=== PATIENT | male | born 1955 | race Caucasian/White ===

== ENCOUNTER 2017-01-25 09:33 | Observation (INO) | payer BC ==
[2017-01-25] MEDS ORDERED: Sodium Chloride 0.9% 1,000 ML IV ONE (10:05)
--- NOTE | 2017-01-25 10:38 | EDM.PDOC ---
ED HPI SEIZURE COMPLAINT - General Chief Complaint: Syncope Stated Complaint: syncope Time Seen by Provider: 01/25/17 10:13 Source of Information: Reports: Patient History Limitations: Reports: No limitations - History of Present Illness INITIAL COMMENTS - FREE TEXT/NARRATIVE: Patient seen for a syncopal episode while waiting for medications at the pharmacy. He states that he did have some lightheadedness and dizziness on more than one occasion this week. Has been ill for a week with fever and chills. Afebrile this morning. He denies chest pain, SOB, no LOC, no nausea, vomiting, bloody urine, stool, or emesis. He is clammy. Denies smoking, but does use chewing tobacco. States he drinks 2-3 beers 2-3 times weekly. Denies drug use. Has history of HTN and takes a combination pill of lisinopril and hctz 10/12.5. He denies all other medical history. Does have a history of multiple fractured ribs due to getting hit by a tree that he was cutting down. Symptom Onset Date: 01/25/17 Symptom Onset Time: 09:30 Event Occurred (Where): other Event (Witnessed/Unwitnessed): witnessed Context: Reports: illness Pre Event Symptom(s): Reports: diaphoresis, fever/chills, shortness of breath Event Symptoms: Reports: no other symptoms - Related Data Allergies/ADRs: Allergies Allergy/AdvReac Type Severity Reaction Status Date / Time venom-honey bee Allergy Swelling Verified 01/25/17 10:03 [bee venom (honey bee)] Home Meds: Home Meds Lisinopril/Hydrochlorothiazide [Lisinopril-Hctz 10-12.5 mg Tab] 1 tab DAILY 12/09 [History] Past Medical History - Past Health History Medical/Surgical History: Denies Medical/Surgical History Social & Family History - Alcohol Use Days Per Week of Alcohol Use: 4 Number of Drinks Per Day: 5 Total Drinks Per Week: 20 - Recreational Drug Use Recreational Drug Use: No ED ROS GENERAL - Review of Systems Review Of Systems: See Below Constitutional: Reports: fever, chills, diaphoresis HEENT: Reports: No symptoms Respiratory: Reports: Shortness of Breath Cardiovascular: Reports: No symptoms. Denies: Chest pain Endocrine: Reports: no symptoms GI/Abdominal: Reports: No symptoms : Reports: no symptoms Musculoskeletal: Reports: no symptoms Skin: Reports: no symptoms Neurological: Reports: No Symptoms Psychiatric: Reports: No symptoms Hematologic/Lymphatic: Reports: no symptoms Immunologic: Reports: no symptoms - Physical Exam Exam: See Below Exam Limited By: No limitations General Appearance: alert, WD/WN, no apparent distress Eye Exam: bilateral eye: EOMI, PERRL Ears: normal TMs Nose: normal inspection Throat/Mouth: Normal inspection, Normal oropharynx Head Exam: atraumatic, normocephalic Neck: normal inspection, supple, non-tender, full range of motion Respiratory/Chest: no respiratory distress, lungs clear, normal breath sounds, chest non-tender Cardiovascular: normal peripheral pulses, regular rate, rhythm, no edema GI/Abdominal: normal bowel sounds, soft, non tender Neuro Exam (Abbreviated): alert, oriented, CN II-XII intact, normal cognition Back Exam: normal inspection Extremities: normal inspection, normal range of motion, no pedal edema, normal capillary refill Psychiatric: normal affect, normal mood Skin Exam: Diaphoretic EKG INTERPRETATION EKG Date: 01/25/17 Time: 09:35 Rhythm: other (sinus tach) Rate (beats/min): 108 [place]: LAD-left axis deviation P-wave: present QRS: normal ST-T: normal QT: normal Comparison: change from previous EKG EKG Interpretation Comments: Sinus tachycardia left axis deviation poor R wave progression - likely normal variant low QRS voltages in precordial leads 15 LEAD ECG Course - Orders/Labs/Meds Orders: Active Orders 24 hr Category Date Time Status Chest 1V Frontal [CR] Stat Exams 01/25/17 10:13 Ordered B-TYPE NATRIURETIC PEPTIDE,BNP [CHEM] Stat Lab 01/25/17 10:21 Ordered CK W CKMB [CHEM] Stat Lab 01/25/17 10:21 Ordered D-DIMER QUANTITATIVE [COAG] Stat Lab 01/25/17 10:21 Ordered TROPONIN I [CHEM] Stat Lab 01/25/17 10:21 Ordered - Re-Assessments/Exams Free Text/Narrative Re-Assessment/Exam: 01/25/17 11:27 Troponin did come back slightly elevated at 0.156 so I will admit for observation to trend his troponin. If negative trend, will discharge to home, if continues to climb, will transfer to [facility] for further evaluation. 01/25/17 11:41 PLEASE USE EMERGENCY ROOM HISTORY AND PHYSICAL ADMITTING H AND P Departure - Departure Time of Disposition: 11:41 Disposition: Refer to Observation Condition: good Clinical Impression: Syncope Forms: ED Department Discharge - My Orders Last 24 Hours: My Active Orders 01/25/17 10:13 Chest 1V Frontal [CR] Stat 01/25/17 10:21 B-TYPE NATRIURETIC PEPTIDE,BNP [CHEM] Stat CK W CKMB [CHEM] Stat D-DIMER QUANTITATIVE [COAG] Stat TROPONIN I [CHEM] Stat - Assessment/Plan Last 24 Hours: My Active Orders 01/25/17 10:13 Chest 1V Frontal [CR] Stat 01/25/17 10:21 B-TYPE NATRIURETIC PEPTIDE,BNP [CHEM] Stat CK W CKMB [CHEM] Stat D-DIMER QUANTITATIVE [COAG] Stat TROPONIN I [CHEM] Stat
[2017-01-25] MEDS ORDERED: Sodium Chloride 0.9% 10 ML Syringe FLUSH PRN (11:03)
[2017-01-25 11:30] LABS: CHLORIDE,CL 103 mmol/L (98-107); SODIUM,NA 138 mmol/L (136-145)
[2017-01-25] MEDS ORDERED: Acetaminophen 325 MG Tab PO PRN (11:43)
[2017-01-25] MEDS ORDERED: Ibuprofen 200 MG Tab PO PRN (11:43)
[2017-01-25] MEDS ORDERED: Albuterol/Ipratropium 3.0-0.5 MG/3 ML Neb Soln NEB PRN (11:43)
[2017-01-25] MEDS ORDERED: Docusate Sodium 100 MG Cap PO PRN (11:43)
[2017-01-25] MEDS ORDERED: Acetaminophen/HYDROcodone 325-5 MG Tab PO PRN (11:43)
[2017-01-25] MEDS ORDERED: Ondansetron 4 MG Tab.DIS PO PRN (11:43)
[2017-01-25] MEDS ORDERED: Enoxaparin 40 MG/0.4 ML Syringe SUBCUT SCH (11:45)
[2017-01-25] MEDS ORDERED: Sodium Chloride 0.9% 1,000 ML IV SCH (12:00)
[2017-01-25] MEDS ORDERED: Heparin Sodium 5,000 Units/ML Vial IVPUSH ONE (12:44)
[2017-01-25] MEDS ORDERED: Heparin Sodium/0.45% NaCl 25,000 UNITS/500 ML BAG IV SCH (12:45)
[2017-01-25 14:14] VITALS: BP 100/84
--- NOTE | 2017-02-08 08:51 | PCM.DCSUM1 ---
Discharge Summary - Hospital Course Free Text/Narrative:: Patient brought in for syncopal episode with reports of feeling ill over the past week with similar near syncopal episodes. Admitted for observation due to slightly elevated troponin Brief History: Admission for observation due to syncope and slight elevation of troponin and D-dimer. Results of CTA chest did show a sizeable saddle pulmonary embolus with possible atrial septal defect. He was immediately given TPA after consultation with human performance professor at [facility], as well as risks and benefits being explained. [facility] transfer to [facility] ICU. - Discharge Data Discharge Date: 01/25/17 Discharge Disposition: DC/Tfer to Other 70 Condition: Serious - Discharge Diagnosis/Problem(s) (1) Bilateral pulmonary embolism SNOMED Code(s): 42179377, [id number] ICD Code: I26.99 - OTHER PULMONARY EMBOLISM WITHOUT ACUTE COR PULMONALE Status: Acute Priority: High - Patient Summary/Data Hospital Course: Admission for observation due to syncope and slight elevation of troponin and D- dimer. Results of CTA chest did show a sizeable saddle pulmonary embolus with possible atrial septal defect. He was immediately given TPA after consultation with human performance professor at [facility], as well as risks and benefits being explained. [facility] transfer to [facility] ICU. - Discharge Plan Home Medications: Home Meds Lisinopril/Hydrochlorothiazide [Lisinopril-Hctz 10-12.5 mg Tab] 1 tab DAILY 12/09 [History] Forms: ED Department Discharge, Interfacility Transfer [facility] Referrals: Adelita Espinal DO [Primary Care Provider] - - Discharge Summary/Plan Comment DC Time >30 min.: Yes - Patient Data Vitals - Most Recent: Last Vital Signs Temp 36.4 C 01/25/17 14:01 Pulse 91 01/25/17 14:14 Resp 16 01/25/17 14:14 BP 100/84 01/25/17 14:14 Pulse Ox 91 L 01/25/17 14:14 Weight - Most Recent: 98.792 kg Med Orders - Current: Current Medications Discontinued Medications Acetaminophen (Tylenol) 650 mg PO Q4H PRN PRN Reason: Pain (Mild 1-3)/fever Hydrocodone Bitart/Acetaminophen ([place] 325-5 Mg) 1 tab PO Q4H PRN PRN Reason: Pain (moderate 4-6) Albuterol/Ipratropium (Duoneb 3.0-0.5 Mg/3 Ml) 3 ml NEB Q4H PRN PRN Reason: dyspnea/wheezing Alteplase, Recombinant (Activase) 100 mg IV ONETIME ONE Stop: 01/25/17 13:24 Last Admin: 01/25/17 13:48 Dose: 100 mg Docusate Sodium (Colace) 100 mg PO BID PRN PRN Reason: Constipation Enoxaparin Sodium (Lovenox) 40 mg SUBCUT DAILY LEROY Last Admin: 01/25/17 13:03 Dose: Not Given Heparin Sodium (Porcine) (Heparin Sodium) 5,000 units IVPUSH ONETIME ONE Stop: 01/25/17 12:45 Last Admin: 01/25/17 12:58 Dose: 5,000 units Sodium Chloride (Normal Saline) 1,000 mls @ 500 mls/hr IV .BOLUS ONE Stop: 01/25/17 12:04 Last Admin: 01/25/17 09:40 Dose: 500 mls/hr Sodium Chloride (Normal Saline) 1,000 mls @ 125 mls/hr IV ASDIRECTED LEROY Last Admin: 01/25/17 12:57 Dose: 125 mls/hr Heparin Sodium/Sodium Chloride (Heparin 25,000 Units In 1/2 Ns 500 Ml) 25,000 units in 500 mls @ 35.598 mls/hr IV TITRATE LEROY; 18 UNITS/KG/HR PRN Reason: Protocol Last Admin: 01/25/17 13:05 Dose: 18.01 units/kg/hr, 35.598 mls/hr Ibuprofen (Motrin) 600 mg PO Q6H PRN PRN Reason: Pain (mild 1-3) Ondansetron HCl (Zofran Odt) 4 mg PO Q6H PRN PRN Reason: nausea, able to take PO Sodium Chloride (Saline Flush) 10 ml FLUSH ASDIRECTED PRN PRN Reason: Keep Vein Open *Q Meaningful Use (DIS) - VTE *Q VTE Criteria *Q: - Stroke *Q Stroke Criteria *Q: - AMI *Q AMI Criteria *Q:
== END 2017-01-25 14:40 | disposition other institution (70) ==
LOC: VM.ED 09:33 → VM.MS 11:30
PROVIDERS: ADMIT Nurse Practitioner Family; ATTEND Nurse Practitioner Family
DX: R55 Syncope and collapse (principal); Z91.030 Bee allergy status; Z79.899 Other long term (current) drug therapy
CPT/HCPCS: 36415; 71010; 71275; 80053; 82550; 82553; 83880; 84484; 85379; 85610; 93005; 96361; 96365; 96372; 96375; 96376; 99285; G0103; G0378; J1644; J2997; J7030; 96360

== ENCOUNTER 2017-01-28 08:03 | Emergency (ER) | payer BC ==
[2017-01-28] MEDS ORDERED: Sodium Chloride 0.9% 10 ML Syringe FLUSH PRN (08:14)
[2017-01-28] MEDS ORDERED: Sodium Chloride 0.9% 1,000 ML IV SCH (08:15)
--- NOTE | 2017-01-28 08:21 | EDM.PDOC ---
ED HPI NEURO - General Chief Complaint: Neuro Symptoms/Deficits Stated Complaint: stroke like symptoms Time Seen by Provider: 01/28/17 08:05 Source of Information: Reports: EMS, EMS notes reviewed, Family, RN, RN notes reviewed History Limitations: Reports: No limitations - History of Present Illness INITIAL COMMENTS - FREE TEXT/NARRATIVE: Patient is brought to the ED at [facility] with stroke-like symptoms. According to patients SO, she found the patient at home around 07:30 this morning unresponsive. She immediately called EMS. Upon arrival, patient had left -sided neglect, right lateral gaze, only responds to painful stimuli, garbled speech. Patient was recently inpatient at [facility] 3 days ago for a PE. Was discharge home on Warfarin and Lovenox. Symptom Onset Date: 01/28/17 Symptom Onset Time: 07:30 Timing/Duration: Reports: Constant Location (Neuro Complaint): Reports: face, upper extremity, left Quality (Neuro Complaint): Reports: weakness Severity: severe Associated Symptoms: Reports: weakness - Related Data Allergies/ADRs: Allergies Allergy/AdvReac Type Severity Reaction Status Date / Time venom-honey bee Allergy Swelling Verified 01/25/17 10:03 [bee venom (honey bee)] Home Meds: Home Meds Lisinopril/Hydrochlorothiazide [Lisinopril-Hctz 10-12.5 mg Tab] 1 tab DAILY 12/09 [History] Past Medical History - Past Health History Medical/Surgical History: Denies Medical/Surgical History Cardiovascular History: Reports: Hypertension Musculoskeletal History: Reports: Other (see below) Other Musculoskeletal History: hx of rib fx 3 years ago Oncologic (Cancer) History: Reports: Basal cell carcinoma Dermatologic History: Reports: Melanoma, Other (see below) Other Dermatologic History: recent skin cancer - Past Surgical History Respiratory Surgical History: Reports: None Dermatological Surgical History: Reports: Skin biopsy Social & Family History - Family History Family Medical History: Noncontributory - Tobacco Use Smoking Status *Q: Never Smoker Second Hand Smoke Exposure: No - Caffeine Use Caffeine Use: Reports: Coffee - Alcohol Use Days Per Week of Alcohol Use: 3 Number of Drinks Per Day: 3 Total Drinks Per Week: 9 - Recreational Drug Use Recreational Drug Use: No ED ROS GENERAL - Review of Systems Review Of Systems: ROS reveals no pertinent complaints other than HPI. ED EXAM, NEURO - Physical Exam Exam: See Below Exam Limited By: No limitations General Appearance: alert, lethargic Eye Exam: bilateral eye: abnormal EOM (Does not track), abnormal pupil (both sluggish 1mm), normal inspection Ears: normal external exam, normal canal, hearing grossly normal, normal TMs Head Exam: atraumatic, normocephalic Neck: supple Respiratory/Chest: no respiratory distress, decreased breath sounds, wheezing Cardiovascular: regular rate, rhythm, bradycardia GI/Abdominal: normal bowel sounds, soft, abnormal bowel sounds: (hypoactive) Neurological: withdraws to pain, abnormal finger to nose, other (Right side gaze ; decordicate RUE; flaccid left leg and arm; withdraws to pain X4; garbled speech) Skin Exam: Warm, Dry, Intact, Normal color, No rash EKG INTERPRETATION EKG Date: 01/28/17 Time: 08:05 Rhythm: NSR Rate (beats/min): 45 [place]: normal P-wave: enlarged QRS: normal ST-T: other (ST-T changes) QT: normal MT/PQ Interval: 0.23 Comparison: change from previous EKG EKG Interpretation Comments: Sinus Bradycardia with 1st degree AVB Extensive ST-T changes may be due to myocardial ischemia Course - Orders/Labs/Meds Orders: Active Orders 24 hr Category Date Time Status EKG 12 Lead [EKG Documentation Completion] [RC] STAT Care 01/28/17 08:14 Active Head wo Cont [CT] Stat Exams 01/28/17 08:13 Taken Sodium Chloride 0.9% [Normal Saline] 1,000 ml Med 01/28/17 08:15 Active IV ASDIRECTED Sodium Chloride 0.9% [Saline Flush] Med 01/28/17 08:14 Active 10 ml FLUSH ASDIRECTED PRN Peripheral IV Insertion Adult [OM.PC] Routine Oth 01/28/17 08:14 Ordered Medication Orders Sodium Chloride (Normal Saline) 1,000 mls @ 30 mls/hr IV ASDIRECTED LEROY Last Admin: 01/28/17 08:20 Dose: 30 mls/hr Sodium Chloride (Saline Flush) 10 ml FLUSH ASDIRECTED PRN PRN Reason: Keep Vein Open Labs: Laboratory Tests 01/28/17 01/28/17 01/28/17 Range/Units 08:14 08:14 08:14 WBC 10.6 H (4.0-10.0) x10^3/uL RBC 4.06 L (4.5-6.0) x10^6/uL Hgb 11.8 L (14.0-18.0) g/dL Hct 35.0 L (40.0-52.0) % MCV 86.2 (78.0-93.0) fL MCH 29.1 (26.0-32.0) pg MCHC 33.7 (32.0-36.0) g/dL RDW Coeff of Yang 13.7 (10.0-15.0) % Plt Count 264 (130-400) x10^3/uL Add Manual Diff Yes Neutrophils % (Manual) 74 (50-80) % Band Neutrophils % 1 (0-6) % Lymphocytes % (Manual) 10 L (25-50) % Monocytes % (Manual) 15 H (2-11) % Platelet Estimate Adequate PT 13.2 H (10.0-12.8) SEC INR 1.2 L (2.0-3.5) APTT 30.9 (24.0-36.0) SEC Sodium 140 (136-145) mmol/L Potassium 4.2 (3.5-5.1) mmol/L Chloride 106 (98-107) mmol/L Carbon Dioxide 24 (21-32) mmol/L BUN 8 (7-18) mg/dL Creatinine 1.1 (0.70-1.30) mg/dL Est Cr Clr Drug Dosing TNP Estimated GFR (MDRD) > 60 Glucose 115 H (74-106) mg/dL Calcium 8.5 (8.5-10.1) mg/dL Creatine Kinase 44 (39-308) U/L Creatine Kinase Index 1.6 (0.0-4.0) % CK-MB (CK-2) 0.7 (0.0-3.6) ng/mL POC Troponin I (0.00-0.08) ng/mL 01/28/17 Range/Units 08:20 WBC (4.0-10.0) x10^3/uL RBC (4.5-6.0) x10^6/uL Hgb (14.0-18.0) g/dL Hct (40.0-52.0) % MCV (78.0-93.0) fL MCH (26.0-32.0) pg MCHC (32.0-36.0) g/dL RDW Coeff of Yang (10.0-15.0) % Plt Count (130-400) x10^3/uL Add Manual Diff Neutrophils % (Manual) (50-80) % Band Neutrophils % (0-6) % Lymphocytes % (Manual) (25-50) % Monocytes % (Manual) (2-11) % Platelet Estimate PT (10.0-12.8) SEC INR (2.0-3.5) APTT (24.0-36.0) SEC Sodium (136-145) mmol/L Potassium (3.5-5.1) mmol/L Chloride (98-107) mmol/L Carbon Dioxide (21-32) mmol/L BUN (7-18) mg/dL Creatinine (0.70-1.30) mg/dL Est Cr Clr Drug Dosing Estimated GFR (MDRD) Glucose (74-106) mg/dL Calcium (8.5-10.1) mg/dL Creatine Kinase (39-308) U/L Creatine Kinase Index (0.0-4.0) % CK-MB (CK-2) (0.0-3.6) ng/mL POC Troponin I 0.20 H* (0.00-0.08) ng/mL Meds: Medications Generic Name Dose Route Start Last Admin Trade Name Freq PRN Reason Stop Dose Admin Sodium Chloride 1,000 mls @ 30 mls/hr 01/28/17 08:15 01/28/17 08:20 Normal Saline IV 30 mls/hr ASDIRECTED LEROY Administration Sodium Chloride 10 ml 01/28/17 08:14 Saline Flush FLUSH ASDIRECTED PRN Keep Vein Open - Radiology Interpretation Free Text/Narrative:: See scanned document in EMR for CT scan results CT Results Date: 01/28/17 CT Results Time: 08:40 Departure - Departure Time of Disposition: 09:18 Disposition: DC/Tfer to Acute Hospital 02 Condition: poor Clinical Impression: Cerebral embolism, Acute embolic stroke Referrals: Adelita Espinal, [Primary Care Provider] - Forms: Interfacility Transfer EMTALA - Problem List Review Problem List Initiated/Reviewed/Updated: Yes - My Orders Last 24 Hours: My Active Orders 01/28/17 08:13 Head wo Cont [CT] Stat 01/28/17 08:14 EKG 12 Lead [EKG Documentation Completion] [RC] STAT Sodium Chloride 0.9% [Saline Flush] 10 ml FLUSH ASDIRECTED PRN Peripheral IV Insertion Adult [OM.PC] Routine 01/28/17 08:15 Sodium Chloride 0.9% [Normal Saline] 1,000 ml IV ASDIRECTED - Assessment/Plan Last 24 Hours: My Active Orders 01/28/17 08:13 Head wo Cont [CT] Stat 01/28/17 08:14 EKG 12 Lead [EKG Documentation Completion] [RC] STAT Sodium Chloride 0.9% [Saline Flush] 10 ml FLUSH ASDIRECTED PRN Peripheral IV Insertion Adult [OM.PC] Routine 01/28/17 08:15 Sodium Chloride 0.9% [Normal Saline] 1,000 ml IV ASDIRECTED Plan: 01/28/1017 08:[address] Arevalo, [facility] Neurology. Patient will be flown to [facility]; intubate prior to leaving. CT of Head send to [facility] 01/28/2017 08:40 Case discussed with [place] Radiologist; patient has cerebral embolus; recommend CTA of Brain
[2017-01-28 09:10] LABS: CHLORIDE,CL 106 mmol/L (98-107); SODIUM,NA 140 mmol/L (136-145)
== END 2017-01-28 09:50 | disposition short-term general hospital (02) ==
LOC: VM.ED 08:03
DX: I63.9 Cerebral infarction, unspecified (principal); I10 Essential (primary) hypertension
CPT/HCPCS: 36415; 70450; 80048; 82550; 82553; 84484; 85025; 85610; 85730; 96360; 99291; J7030; 93005